=== PATIENT | male | born 1990 | race Caucasian/White ===

== ENCOUNTER 2016-07-24 13:10 | Emergency (ER) | payer OTHER ==
[2016-07-24 13:34] VITALS: BP 149/86; PULSE 90; TEMP 98.1; BMI 30.4
[2016-07-24] MEDS ORDERED: DIPHTH,PERTUSS(ACELL),TET 0.5 ML DISP.SYRIN IM ONE (14:13)
--- NOTE | 2016-07-24 14:53 | PDOC ---
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) He was trying to take a pot off the wall, and it fell and struck him in the left forehead, and he sustained a laceration above his left eyebrow He denies any loss of consciousness He denies any neck pain He denies any other injury He denies any eye injury He denies any other complaints at this time Past History - Past Medical History Allergies/Adverse Reactions: Allergies Allergy/AdvReac Type Severity Reaction Status Date / Time No Known Allergies Allergy Verified 07/24/16 13:23 Home Medications: Ambulatory Orders NK [No Known Home Medication] 07/24/16 - Psycho/Social/Smoking Cessation Hx Anxiety: No Suicidal Ideation: No Smoking History: Current every day smoker Have you smoked in the past 12 months: Yes Number of Cigarettes Smoked Daily: 5 Information on smoking cessation initiated: Yes 'Breaking Loose' booklet given: 07/24/16 Hx Alcohol Use: Yes (OCCASIONAL) Drug/Substance Use Hx: No Substance Use Type: None *Physical Exam - Vital Signs Last Vital Signs Temp Pulse Resp BP Pulse Ox 98.1 F 90 15 149/86 99 07/24/16 13:21 07/24/16 13:21 07/24/16 13:21 07/24/16 13:21 07/24/16 13:21 - Physical Exam Comments: 07/24/16 14:50 Physical exam Last Vital Signs Temp Pulse Resp BP Pulse Ox 98.1 F 90 15 149/86 99 07/24/16 13:21 07/24/16 13:21 07/24/16 13:21 07/24/16 13:21 07/24/16 13:21 Patient is alert and ambulatory and answering questions Head is normocephalic and atraumatic There is a 1-1/2-2 cm laceration above the left eyebrow, with a bruise No other head injury is noted No evidence of any eye injury ED Treatment Course - Medications Given in the ED: ED Medications Discontinued Medications Generic Name Dose Route Start Last Admin Trade Name Sylvia PRN Reason Stop Dose Admin Diphtheria/Tetanus/Acell Pertussis 0.5 ml 07/24/16 14:13 07/24/16 14:28 Boostrix - IM 07/24/16 14:14 0.5 ml ONCE ONE Administration Medical Decision Making - Medical Decision Making 07/24/16 14:51 Laceration repair: The skin was prepped with betadine. 2% lidocaine plain was injected subcutaneously for local anesthesia. The wound was explored and cleansed thoroughly, there was no foreign body in the wound Normal saline lavage, high pressure, high volume was performed. Wound was closed with good approximation with 5 - 0 Ethilon, simple interrupted sutures, x 4 were placed. Bacitracin and a dry sterile dressing were applied. Patient was advised regarding signs and symptoms of infection as well as instructions for suture removal. Suture removal in one week *DC/Admit/Observation/Transfer Diagnosis at time of Disposition: Laceration of forehead - Discharge Dispostion Disposition: HOME Condition at time of disposition: Good - Patient Instructions Printed Discharge Instructions: Tips to Help You Stop Smoking, DI for Laceration Repair Additional Instructions: The wound clean and dry for the next 24-[address] a fresh Neosporin dressing or Band-Aid to the area twice a day Observe closely for any signs of infection, which would be redness, swelling, drainage, increasing pain, or any other concerns you may have Suture removal in one week-you may return here for suture removal, or go back to your primary care physician for suture removal Followup with your primary care physician Return immediately if you worsen in any way
== END 2016-07-24 14:59 | disposition home or self-care (01) ==
LOC: FER 13:10
PROC: 0HQ1XZZ Repair Face Skin, External Approach (ICD-10-PCS; principal; 2016-07-24)
DX: S01.81XA Laceration without foreign body of other part of head, initial encounter (principal); W20.8XXA Other cause of strike by thrown, projected or falling object, initial encounter; Y93.89 Activity, other specified; Y92.89 Other specified places as the place of occurrence of the external cause; Y99.0 Civilian activity done for income or pay
CPT/HCPCS: 90715; 99282-25